=== PATIENT | female | born 1970 | race Caucasian/White ===

== ENCOUNTER 2016-12-28 11:43 | Emergency (ER) | payer OTHER ==
[2016-12-28 14:12] VITALS: BP 128/92
--- NOTE | 2016-12-28 14:17 | UC ---
Throat Pain/Nasal Lacho HPI - HPI Summary HPI Summary: ST radiating to R ear, congested cough, nasal congestion, malaise starting 2 days ago. Lives with father, he has bronchitis. No known fever. - History of Current Complaint Stated Complaint: THROAT,EARS Time Seen by Provider: 12/28/16 13:58 Hx Obtained From: Patient ?: No Onset/Duration: Gradual Onset, Lasting Days Severity: Mild Cough: Productive Associated Signs & Symptoms: Positive: Nasal Discharge. Negative: Fever, Vomiting, Rash - Allergies/Home Medications Allergies/Adverse Reactions: Allergies Allergy/AdvReac Type Severity Reaction Status Date / Time Pseudoephedrine Allergy Severe Hypotension Verified 11/18/16 17:09 [From Sudafed] Aspirin Allergy Intermediate Wheezing Verified 11/18/16 17:09 Clavulanic Acid AdvReac Diarrhea Verified 11/18/16 17:09 [From Augmentin] PMH/Surg Hx/FS Hx/Imm Hx Respiratory History Of: Reports: Asthma - Surgical History Surgical History: Yes Surgery Procedure, Year, and Place: Hysterectomy, 2012, [facility] - Family History Known Family History: Positive: Cardiac Disease, Hypertension, Respiratory Disease - TOBACCO ABUSE Negative: Diabetes - Social History Lives: With Family Alcohol Use: None Substance Use Type: None Smoking Status (MU): Current Every Day Smoker Type: Cigarettes Amount Used/How Often: 1/2 PPD Length of Time of Smoking/Using Tobacco: 31 Years Have You Smoked in the Last Year: Yes Household Exposure Type: Cigarettes - Immunization History Most Recent Influenza Vaccination: Not the 2014/2015 Season Review of Systems Constitutional: Negative Skin: Negative Eyes: Negative ENT: Sore Throat, Ear Ache Respiratory: Cough Cardiovascular: Negative Gastrointestinal: Negative Genitourinary: Negative Motor: Negative Neurovascular: Negative Musculoskeletal: Negative Neurological: Negative Psychological: Negative All Other Systems Reviewed And Are Negative: Yes Physical Exam Triage Information Reviewed: Yes Appearance: Well-Appearing, No Pain Distress, Obese Vital Signs: Initial Vital Signs Temp 98.0 F 12/28/16 14:09 Pulse 85 12/28/16 14:09 Resp 14 12/28/16 14:09 BP 128/92 12/28/16 14:09 Pulse Ox 97 12/28/16 14:09 Vital Signs Reviewed: Yes Eye Exam: Normal Eyes: Positive: Conjunctiva Clear ENT: Positive: Hearing grossly normal, Pharynx normal, TMs normal Dental Exam: Other - dentures Neck exam: Normal Neck: Positive: Supple, Nontender, No Lymphadenopathy Respiratory Exam: Normal Respiratory: Positive: Chest non-tender, Lungs clear, Normal breath sounds, No respiratory distress, No accessory muscle use Cardiovascular Exam: Normal Cardiovascular: Positive: RRR, No Murmur Musculoskeletal Exam: Normal Neurological Exam: Normal Psychological Exam: Normal Skin Exam: Normal Throat Pain/Nasal Course/Dx - Differential Dx/Diagnosis Provider Diagnoses: acute bronchitis, likely viral Discharge - Discharge Plan Condition: Stable Disposition: HOME Patient Education Materials: Acute Bronchitis (ED) Referrals: ANABEL Pratt [Primary Care Provider] - If Needed Additional Instructions: USE YOUR ALBUTEROL INHALER EVERY 4-6 HOURS NEEDED FOR TIGHTNESS IN THE CHEST. We used to think antibiotics were necessary to treat bronchitis, but studies have shown that respiratory viruses cause the disease in the vast majority of cases. Like head colds, most cases of bronchitis get better without antibiotics. We may prescribe antibiotics if we believe bacteria are damaging your airways, or if there's high risk the bronchitis will worsen into pneumonia (such as for individuals with emphysema or other lung disease). Increase your fluid intake. A cool mist humidifier may make your lungs more comfortable. An expectorant (cough medicine that loosens phlegm) can help. If you smoke, STOP!!! Recovery from bronchitis can be somewhat slow, but you should not have any significant worsening or new fevers. As long as you can breathe easily and you continue to have steady improvement, it is not important how many days it takes you to get better. Call or return if you develop increasing fever, shortness of breath, chest pain , bloody sputum, or otherwise worsen. If you have not improved at all after several days, contact your primary care physician or return here.
== END 2016-12-28 14:28 | disposition home or self-care (01) ==
LOC: UCCORT 11:43
DX: J20.9 Acute bronchitis, unspecified (principal); E66.9 Obesity, unspecified; F17.210 Nicotine dependence, cigarettes, uncomplicated; Z88.1 Allergy status to other antibiotic agents; Z88.6 Allergy status to analgesic agent; Z88.8 Allergy status to other drugs, medicaments and biological substances
CPT/HCPCS: 99211; G0463

== ENCOUNTER 2017-01-10 13:12 | Emergency (ER) | payer OTHER ==
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
[2017-01-10 16:21] VITALS: BP 113/82
--- NOTE | 2017-01-10 16:49 | RAD ---
HISTORY: Left upper arm pain, fall COMPARISONS: None VIEWS: 6, Frontal internal rotation and external rotation views of the left humerus with frontal internal rotation, external rotation, and outlet views of the left shoulder FINDINGS: BONE DENSITY: Normal. BONES: There is no displaced fracture. JOINTS: There is mild osteoarthritis of the AC joint. ALIGNMENT: There is no dislocation. SOFT TISSUES: Unremarkable. OTHER FINDINGS: None. IMPRESSION: NO ACUTE OSSEOUS INJURY. IF SYMPTOMS PERSIST, RECOMMEND REPEAT IMAGING.
== END 2017-01-10 17:34 | disposition home or self-care (01) ==
LOC: UCCORT 13:12
DX: S46.912A Strain of unspecified muscle, fascia and tendon at shoulder and upper arm level, left arm, initial encounter (principal); F17.210 Nicotine dependence, cigarettes, uncomplicated; W00.0XXA Fall on same level due to ice and snow, initial encounter; Y92.9 Unspecified place or not applicable; Z88.1 Allergy status to other antibiotic agents; Z88.6 Allergy status to analgesic agent; Z88.8 Allergy status to other drugs, medicaments and biological substances
CPT/HCPCS: 99213; G0463

== ENCOUNTER 2017-04-23 11:22 | Emergency (ER) | payer OTHER ==
[2017-04-23 11:50] VITALS: BP 112/69
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
== END 2017-04-23 12:07 | disposition home or self-care (01) ==
LOC: UCCORT 11:22
DX: T22.211A Burn of second degree of right forearm, initial encounter (principal); X08.8XXA Exposure to other specified smoke, fire and flames, initial encounter; Y93.9 Activity, unspecified; Y92.9 Unspecified place or not applicable; Y99.8 Other external cause status; J45.909 Unspecified asthma, uncomplicated; Z90.710 Acquired absence of both cervix and uterus; Z88.1 Allergy status to other antibiotic agents; Z88.6 Allergy status to analgesic agent; Z88.8 Allergy status to other drugs, medicaments and biological substances; F17.210 Nicotine dependence, cigarettes, uncomplicated
CPT/HCPCS: 99211; G0463

== ENCOUNTER 2017-08-26 19:58 | Emergency (ER) | payer OTHER ==
[2017-08-26 20:43] VITALS: BP 131/77
[2017-08-26] MEDS ORDERED: Azithromycin TAB* 250 MG PO ONE (20:58)
--- NOTE | 2017-08-26 21:02 | UC ---
Throat Pain/Nasal Lacho HPI - HPI Summary HPI Summary: patient is a smoker, has had increase wheezing and cough, sinus pressure and ear pain for about 1 week - History of Current Complaint Chief Complaint: UCRespiratory Stated Complaint: SINUS/SORE THROAT Time Seen by Provider: 08/26/17 20:36 Hx Obtained From: Patient Hx Last Menstrual Period: n/a ?: No Onset/Duration: Sudden Onset, Lasting Weeks Severity: Moderate Associated Signs & Symptoms: Positive: Wheezing, Hoarseness, Sinus Discomfort, Nasal Discharge - Allergies/Home Medications Allergies/Adverse Reactions: Allergies Allergy/AdvReac Type Severity Reaction Status Date / Time Pseudoephedrine Allergy Severe Hypotension Verified 08/26/17 20:43 [From Sudafed] Aspirin Allergy Intermediate Wheezing Verified 08/26/17 20:43 Clavulanic Acid AdvReac Diarrhea Verified 08/26/17 20:43 [From Augmentin] PMH/Surg Hx/FS Hx/Imm Hx Previously Healthy: Yes - Surgical History Surgical History: Yes Surgery Procedure, Year, and Place: Hysterectomy, 2013, [facility] - Family History Known Family History: Positive: Cardiac Disease, Hypertension, Respiratory Disease - TOBACCO ABUSE Negative: Diabetes - Social History Alcohol Use: None Substance Use Type: None Smoking Status (MU): Heavy Every Day Tobacco Smoker Type: Cigarettes Amount Used/How Often: 1/2 PPD Length of Time of Smoking/Using Tobacco: 31 Years Have You Smoked in the Last Year: Yes Household Exposure Type: Cigarettes - Immunization History Most Recent Influenza Vaccination: no Review of Systems Constitutional: Fatigue Skin: Negative Eyes: Negative ENT: Sore Throat, Ear Ache, Nasal Discharge, Sinus Congestion, Sinus Pain/ Tenderness Respiratory: Shortness Of Breath, Cough Cardiovascular: Negative Gastrointestinal: Negative Genitourinary: Negative Motor: Negative Neurovascular: Negative Musculoskeletal: Negative Neurological: Headache Psychological: Negative Is Patient Immunocompromised?: No All Other Systems Reviewed And Are Negative: Yes Physical Exam Triage Information Reviewed: Yes Appearance: Well-Nourished, Pain Distress Vital Signs: Initial Vital Signs Temp 98.5 F 08/26/17 20:39 Pulse 72 08/26/17 20:39 Resp 18 08/26/17 20:39 BP 131/77 08/26/17 20:39 Pulse Ox 99 08/26/17 20:39 Vital Signs Reviewed: Yes Eye Exam: Normal ENT: Positive: Hearing grossly normal, Pharyngeal erythema, TM red Dental Exam: Normal Neck exam: Normal Neck: Positive: Supple, Nontender, No Lymphadenopathy Respiratory: Positive: Chest non-tender, Normal breath sounds, Wheezing, Expiration, Inspiration Cardiovascular Exam: Normal Cardiovascular: Positive: RRR, No Murmur, Pulses Normal Bowel Sounds: Positive: Present Musculoskeletal Exam: Normal Neurological Exam: Normal Psychological Exam: Normal Skin Exam: Normal Throat Pain/Nasal Course/Dx - Course Course Of Treatment: hx obtained, exam performed ,meds reviewed, treated for bronchitis - Differential Dx/Diagnosis Differential Diagnosis/HQI/PQRI: Otitis Media, Pharyngitis, Sinusitis Provider Diagnoses: sinusitis Discharge - Discharge Plan Condition: Stable Disposition: HOME Patient Education Materials: Acute Bronchitis (ED) Additional Instructions: 1. take the medication as prescribed. 2. Increase flud intake and get plenty of rest.
== END 2017-08-26 21:13 | disposition home or self-care (01) ==
LOC: UCCORT 19:58
DX: J32.9 Chronic sinusitis, unspecified (principal); Z88.6 Allergy status to analgesic agent; Z88.1 Allergy status to other antibiotic agents; Z88.8 Allergy status to other drugs, medicaments and biological substances; F17.210 Nicotine dependence, cigarettes, uncomplicated
CPT/HCPCS: 99212; A9270-GY; G0463

== ENCOUNTER 2017-12-09 10:02 | Emergency (ER) | payer OTHER ==
--- NOTE | 2017-12-09 10:57 | UC ---
Throat Pain/Nasal Lacho HPI - HPI Summary HPI Summary: 47 year old female presents with left ear pain and sinus congestion. - History of Current Complaint Chief Complaint: UCRespiratory Stated Complaint: SINUS COMPLAINT Time Seen by Provider: 12/09/17 10:57 Hx Obtained From: Patient Hx Last Menstrual Period: n/a Onset/Duration: Sudden Onset Severity: Moderate Pain Scale Used: 0-10 Numeric - 5 Cough: Nonproductive Associated Signs & Symptoms: Positive: Sinus Discomfort, Nasal Discharge - Allergies/Home Medications Allergies/Adverse Reactions: Allergies Allergy/AdvReac Type Severity Reaction Status Date / Time Pseudoephedrine Allergy Severe Hypotension Verified 12/09/17 10:58 [From Sudafed] Aspirin Allergy Intermediate Wheezing Verified 12/09/17 10:58 Clavulanic Acid AdvReac Diarrhea Verified 12/09/17 10:58 [From Augmentin] PMH/Surg Hx/FS Hx/Imm Hx Previously Healthy: Yes - Surgical History Surgical History: Yes Surgery Procedure, Year, and Place: Hysterectomy, 2013, [facility] - Family History Known Family History: Positive: Cardiac Disease, Hypertension, Respiratory Disease - TOBACCO ABUSE Negative: Diabetes - Social History Alcohol Use: None Substance Use Type: None Smoking Status (MU): Heavy Every Day Tobacco Smoker Type: Cigarettes Amount Used/How Often: 1/2 PPD Length of Time of Smoking/Using Tobacco: 31 Years Have You Smoked in the Last Year: Yes Household Exposure Type: Cigarettes - Immunization History Most Recent Influenza Vaccination: no Review of Systems Constitutional: Negative Skin: Negative Eyes: Negative ENT: Sore Throat, Ear Ache, Nasal Discharge, Sinus Congestion, Sinus Pain/ Tenderness Respiratory: Negative Cardiovascular: Negative Gastrointestinal: Negative Genitourinary: Negative Motor: Negative Neurovascular: Negative Musculoskeletal: Negative Neurological: Negative Psychological: Negative All Other Systems Reviewed And Are Negative: Yes Physical Exam Triage Information Reviewed: Yes Vital Signs Reviewed: Yes Eye Exam: Normal ENT: Positive: Nasal congestion, Nasal drainage, Other - left external ear erythema Dental Exam: Normal Neck exam: Normal Neck: Positive: 1 Respiratory Exam: Normal Cardiovascular Exam: Normal Abdominal Exam: Normal Musculoskeletal Exam: Normal Neurological Exam: Normal Psychological Exam: Normal Skin Exam: Normal Throat Pain/Nasal Course/Dx - Differential Dx/Diagnosis Provider Diagnoses: left ear otitis externa. sinusitis Discharge - Discharge Plan Condition: Stable Disposition: HOME Prescriptions: Azithromyxin CELESTINE (NF) [Z-Celestine (Zithromax) 250 mg tabs #6] 2 tab PO .TODAY, THEN 1 DAILY #6 tab Neomyc/Polym/HC 1% OTIC SUSP* [Cortisporin Otic Susp 1%*] 4 drop LEFT EAR QID # 1 btl Patient Education Materials: Sinusitis (ED), Otitis Externa (ED) Referrals: ANABEL Pratt [Primary Care Provider] -
[2017-12-09 10:58] VITALS: BP 129/77
== END 2017-12-09 11:18 | disposition home or self-care (01) ==
LOC: UCCORT 10:02
DX: H60.92 Unspecified otitis externa, left ear (principal); J32.9 Chronic sinusitis, unspecified; Z90.710 Acquired absence of both cervix and uterus; Z88.6 Allergy status to analgesic agent; Z88.1 Allergy status to other antibiotic agents; Z88.8 Allergy status to other drugs, medicaments and biological substances; F17.210 Nicotine dependence, cigarettes, uncomplicated
CPT/HCPCS: 99212; G0463

== ENCOUNTER 2017-12-31 10:14 | Emergency (ER) | payer OTHER ==
[2017-12-31 11:58] VITALS: BP 119/72
--- NOTE | 2017-12-31 12:11 | UC ---
Throat Pain/Nasal Lacho HPI - HPI Summary HPI Summary: sinus pain and pressure x 2 weeks worse over the past 3 days, + fever, chills, + cough , pnd, - History of Current Complaint Chief Complaint: UCGeneralIllness Stated Complaint: SINUS EARS SORE THROAT Time Seen by Provider: 12/31/17 11:55 Hx Obtained From: Patient Hx Last Menstrual Period: n/a Onset/Duration: Gradual Onset, Lasting Weeks - 2, Still Present Severity: Moderate Pain Intensity: 4 Cough: Nonproductive Associated Signs & Symptoms: Positive: Sinus Discomfort, Nasal Discharge, Fever. Negative: Rash - Allergies/Home Medications Allergies/Adverse Reactions: Allergies Allergy/AdvReac Type Severity Reaction Status Date / Time MS Pseudoephedrine Allergy Severe Hypotension Verified 12/31/17 11:52 [From Sudafed] MS Aspirin [Aspirin] Allergy Intermediate Wheezing Verified 12/31/17 11:52 MS Clavulanic Acid AdvReac Diarrhea Verified 12/31/17 11:52 [From Augmentin] hazelnut Allergy Hives Uncoded 12/31/17 11:53 PMH/Surg Hx/FS Hx/Imm Hx Neurological History: Migraine - Surgical History Surgical History: Yes Surgery Procedure, Year, and Place: Hysterectomy, 2013, [facility] - Family History Known Family History: Positive: Cardiac Disease, Hypertension, Respiratory Disease - TOBACCO ABUSE Negative: Diabetes - Social History Alcohol Use: None Substance Use Type: None Smoking Status (MU): Heavy Every Day Tobacco Smoker Type: Cigarettes Amount Used/How Often: 1/2 PPD Length of Time of Smoking/Using Tobacco: Since Age 14 Have You Smoked in the Last Year: Yes Household Exposure Type: Cigarettes - Immunization History Most Recent Influenza Vaccination: no Review of Systems Constitutional: Fever, Chills, Fatigue Skin: Negative Eyes: Negative ENT: Sore Throat, Ear Ache, Nasal Discharge Respiratory: Cough Cardiovascular: Negative Is Patient Immunocompromised?: No All Other Systems Reviewed And Are Negative: Yes Physical Exam Triage Information Reviewed: Yes Appearance: Well-Appearing, No Pain Distress, Well-Nourished Vital Signs: Initial Vital Signs Temp 98 F 12/31/17 11:51 Pulse 80 12/31/17 11:51 Resp 16 12/31/17 11:51 BP 119/72 12/31/17 11:51 Pulse Ox 100 12/31/17 11:51 Vital Signs Reviewed: Yes Eye Exam: Normal Eyes: Positive: Conjunctiva Clear ENT: Positive: Normal ENT inspection, Hearing grossly normal, Pharynx normal, Nasal congestion, Nasal drainage, TMs normal, Sinus tenderness Neck exam: Normal Neck: Positive: Supple, Nontender, No Lymphadenopathy Respiratory: Positive: Chest non-tender, Lungs clear, Normal breath sounds Cardiovascular: Positive: RRR, No Murmur, Pulses Normal Skin Exam: Normal Throat Pain/Nasal Course/Dx - Differential Dx/Diagnosis Provider Diagnoses: sinusitis Discharge - Discharge Plan Condition: Stable Disposition: HOME Prescriptions: DOXYcycline CAP(*) [DOXYcycline 100MG CAP(*)] 100 mg PO BID #20 cap Patient Education Materials: Sinusitis (ED) Referrals: ANABEL Pratt [Primary Care Provider] - 7 Days Additional Instructions: increase fluid, Mucinex , use Flonase otc nasal spray daily
== END 2017-12-31 12:14 | disposition home or self-care (01) ==
LOC: UCCORT 10:14
DX: J32.9 Chronic sinusitis, unspecified (principal); F17.210 Nicotine dependence, cigarettes, uncomplicated
CPT/HCPCS: 99212; G0463

== ENCOUNTER 2018-02-13 10:18 | Emergency (ER) | payer OTHER ==
[2018-02-13 11:04] VITALS: BP 116/70
--- NOTE | 2018-02-13 11:15 | UC ---
Throat Pain/Nasal Lacho HPI - HPI Summary HPI Summary: SINUS PAIN AND PRESSURE X 5 DAYS + PND, COUGH, NASAL CONGESTION, SORE THROAT NO FEVER , NO CHILLS, - History of Current Complaint Chief Complaint: UCGeneralIllness Stated Complaint: SINUS,BILATERAL EAR PAIN Time Seen by Provider: 02/13/18 11:07 Hx Obtained From: Patient Hx Last Menstrual Period: n/a Onset/Duration: Gradual Onset, Lasting Days - 5, Still Present Severity: Moderate Pain Intensity: 5 Cough: Nonproductive Associated Signs & Symptoms: Positive: Sinus Discomfort, Nasal Discharge. Negative: Dysphagia, FB Sensation, Drooling, Wheezing, Hoarseness, Fever, Vomiting, Rash - Allergies/Home Medications Allergies/Adverse Reactions: Allergies Allergy/AdvReac Type Severity Reaction Status Date / Time amoxicillin [From Augmentin] Allergy Diarrhea Verified 02/13/18 11:15 aspirin Allergy Wheezing Verified 02/13/18 11:15 clavulanic acid Allergy Diarrhea Verified 02/13/18 11:15 [From Augmentin] hazelnut Allergy Hives Verified 02/13/18 11:15 pseudoephedrine Allergy See Comment Verified 02/13/18 11:15 [From Sudafed] Home Medications: Home Medications Gabapentin CAP(*) [Neurontin 300 CAP(*)] 300 mg PO BEDTIME 02/13/18 [History Confirmed 02/13/18] PMH/Surg Hx/FS Hx/Imm Hx - Additional Past Medical History Additional PMH: Fibromyalgia, Migraines Respiratory History: Asthma - Surgical History Surgical History: Yes Surgery Procedure, Year, and Place: Hysterectomy, 2013, [facility] - Family History Known Family History: Positive: Cardiac Disease, Hypertension, Respiratory Disease - TOBACCO ABUSE Negative: Diabetes - Social History Alcohol Use: None Substance Use Type: None Smoking Status (MU): Heavy Every Day Tobacco Smoker Type: Cigarettes Amount Used/How Often: 1/2 PPD Length of Time of Smoking/Using Tobacco: Since Age 14 Have You Smoked in the Last Year: Yes Household Exposure Type: Cigarettes - Immunization History Most Recent Influenza Vaccination: no Review of Systems Constitutional: Negative Skin: Negative Eyes: Negative ENT: Sore Throat, Nasal Discharge, Sinus Congestion, Sinus Pain/Tenderness Respiratory: Cough Cardiovascular: Negative Gastrointestinal: Negative Genitourinary: Negative Is Patient Immunocompromised?: No All Other Systems Reviewed And Are Negative: Yes Physical Exam Triage Information Reviewed: Yes Appearance: Well-Appearing, No Pain Distress, Well-Nourished Vital Signs: Initial Vital Signs Temp 97.6 F 02/13/18 10:58 Pulse 79 02/13/18 10:58 Resp 14 02/13/18 10:58 BP 116/70 02/13/18 10:58 Pulse Ox 100 02/13/18 10:58 Vital Signs Reviewed: Yes Eye Exam: Normal Eyes: Positive: Conjunctiva Clear ENT: Positive: Normal ENT inspection, Hearing grossly normal, Pharynx normal, Nasal congestion, Nasal drainage, TMs normal, Sinus tenderness Neck exam: Normal Neck: Positive: Supple, Nontender, No Lymphadenopathy Respiratory: Positive: Chest non-tender, Lungs clear, Normal breath sounds, No respiratory distress Cardiovascular: Positive: RRR, No Murmur, Pulses Normal Skin Exam: Normal Throat Pain/Nasal Course/Dx - Differential Dx/Diagnosis Provider Diagnoses: SINUSITIS Discharge - Discharge Plan Condition: Stable Disposition: HOME Prescriptions: DOXYcycline CAP(*) [DOXYcycline 100MG CAP(*)] 100 mg PO BID #20 cap Patient Education Materials: Sinusitis (ED) Referrals: ANABEL Pratt [Primary Care Provider] - If Needed
== END 2018-02-13 11:23 | disposition home or self-care (01) ==
LOC: UCCORT 10:18
DX: J32.9 Chronic sinusitis, unspecified (principal); Z88.0 Allergy status to penicillin; Z88.8 Allergy status to other drugs, medicaments and biological substances; Z91.018 Allergy to other foods; F17.210 Nicotine dependence, cigarettes, uncomplicated
CPT/HCPCS: 99212; G0463

== ENCOUNTER 2018-03-29 10:06 | Emergency (ER) | payer OTHER ==
[2018-03-29 11:18] VITALS: BP 107/68
--- NOTE | 2018-03-29 11:51 | ED ---
Throat Pain/Nasal Congestion - HPI Summary HPI Summary: 48 yr old female with frontal and maxillary sinus pressure, post nasal drip and cough. Onset about a week ago. Not associated with fever or chills. Not associated with SOB. She has had sinus infections before. She feels like she has increased pressure in her ears. She has no other complaints. She states she cannot take Augmentin due to allergy. She states she has taken zithromax before with no issue for this condition. - History of Current Complaint Chief Complaint: UCRespiratory Time Seen by Provider: 03/29/18 11:34 - Allergies/Home Medications Allergies/Adverse Reactions: Allergies Allergy/AdvReac Type Severity Reaction Status Date / Time aspirin Allergy Wheezing Verified 03/29/18 11:14 clavulanic acid Allergy Diarrhea Verified 03/29/18 11:14 [From Augmentin] cortisone Allergy Rash Verified 03/29/18 11:14 hazelnut Allergy Hives Verified 03/29/18 11:14 pseudoephedrine Allergy See Comment Verified 03/29/18 11:14 [From Sudafed] PMH/Surg Hx/FS Hx/Imm Hx Respiratory History: Reports: Hx Asthma - Surgical History Surgery Procedure, Year, and Place: Hysterectomy, 2013, [facility] Infectious Disease History: No Infectious Disease History: Reports: Hx of Known/Suspected MRSA - [facility] [place], [place], 2016 Denies: Hx Clostridium Difficile, Hx Hepatitis, Hx Human Immunodeficiency Virus (HIV), Hx Shingles, Hx Tuberculosis, Hx Known/Suspected VRE, Hx Known/ Suspected VRSA, History Other Infectious Disease, Traveled Outside the [place] in Last 30 Days - Family History Known Family History: Positive: Cardiac Disease, Hypertension, Respiratory Disease - TOBACCO ABUSE Negative: Diabetes - Social History Occupation: Employed Full-time Alcohol Use: None Substance Use Type: Reports: None Smoking Status (MU): Heavy Every Day Tobacco Smoker Type: Cigarettes Amount Used/How Often: 1 PPD Length of Time of Smoking/Using Tobacco: Since Age 14 Have You Smoked in the Last Year: Yes Review of Systems Constitutional: Negative Positive: Other - sinus pressure, post nasal drip. All Other Systems Reviewed And Are Negative: Yes Physical Exam Triage Information Reviewed: Yes Vital Signs On Initial Exam: Initial Vitals Temp Pulse Resp BP Pulse Ox 98 F 76 16 107/68 100 03/29/18 11:12 03/29/18 11:12 03/29/18 11:12 03/29/18 11:12 03/29/18 11:12 Vital Signs Reviewed: Yes Appearance: Positive: Well-Appearing, No Pain Distress Skin: Positive: Warm Head/Face: Positive: Normal Head/Face Inspection Eyes: Positive: EOMI ENT: Positive: Pharynx normal, Nasal congestion, TMs normal, Sinus tenderness - bilateral Neck: Positive: Nontender Respiratory/Lung Sounds: Positive: Clear to Auscultation, Breath Sounds Present Cardiovascular: Positive: RRR. Negative: Murmur Musculoskeletal: Positive: Strength/ROM Intact Neurological: Positive: Sensory/Motor Intact, Alert, Oriented to Person Place, Time, CN Intact II-III Psychiatric: Positive: Normal Diagnostics - Vital Signs Vital Signs Temp Pulse Resp BP Pulse Ox 03/29/18 11:12 98 F 76 16 107/68 100 - Laboratory Lab Statement: Any lab studies that have been ordered have been reviewed, and results considered in the medical decision making process. EENT Course/Dx - Course Course Of Treatment: 48 yr female with sinusitis. Rx with Zithromax. - Diagnoses Provider Diagnoses: Sinusitis Discharge - Sign-Out/Discharge Documenting (check all that apply): Discharge/Admit/Transfer - Discharge Plan Condition: Good Disposition: HOME Prescriptions: Azithromycin TAB* [Zithromax TAB (Z-CELESTINE) 250 mg #6 tabs] 2 tab PO .TODAY, THEN 1 DAILY #1 celestine Patient Education Materials: Sinusitis (ED) Referrals: ANABEL Pratt [Primary Care Provider] - 2 Days - Billing Disposition and Condition Condition: GOOD Disposition: HOME
== END 2018-03-29 11:54 | disposition home or self-care (01) ==
LOC: UCCORT 10:06
DX: J32.9 Chronic sinusitis, unspecified (principal); F17.210 Nicotine dependence, cigarettes, uncomplicated; Z88.6 Allergy status to analgesic agent; Z88.3 Allergy status to other anti-infective agents; Z88.8 Allergy status to other drugs, medicaments and biological substances
CPT/HCPCS: 99212; G0463

== ENCOUNTER 2018-08-21 08:03 | Emergency (ER) | payer OTHER ==
[2018-08-21 08:18] VITALS: BP 120/76
--- NOTE | 2018-08-21 09:53 | UC ---
Throat Pain/Nasal Lacho HPI - HPI Summary HPI Summary: 48-year-old female with sinus pressure and ear pain.Sinus congestion for three days. Right ear pain radiating into neck after sinus saline irrigations for one day. "Hot to cold" subjective fever for one day. She states at least 1 time per year she gets a sinus infection including last fall when she required numerous rounds of antibiotics and needed to follow-up with Dr. Thompson who advised additional antibiotics and nasal saline rinses. Patient usually smokes one pack per day but down to half pack per day at this time. She states she has felt hot but no documented fever. She has had productive green phlegm. [ End ] - History of Current Complaint Chief Complaint: UCEar Stated Complaint: SINUS RIGHT EAR COMPLAINT Time Seen by Provider: 08/21/18 09:37 Hx Obtained From: Patient Hx Last Menstrual Period: n/a Pain Intensity: 5 - Allergies/Home Medications Allergies/Adverse Reactions: Allergies Allergy/AdvReac Type Severity Reaction Status Date / Time aspirin Allergy Wheezing Verified 08/21/18 08:15 clavulanic acid Allergy Diarrhea Verified 08/21/18 08:15 [From Augmentin] cortisone Allergy Rash Verified 08/21/18 08:15 hazelnut Allergy Hives Verified 08/21/18 08:15 pseudoephedrine Allergy See Comment Verified 08/21/18 08:15 [From Sudafed] PMH/Surg Hx/FS Hx/Imm Hx Previously Healthy: Yes - Surgical History Surgical History: Yes Surgery Procedure, Year, and Place: Hysterectomy, 2013, [facility] - Family History Known Family History: Positive: Cardiac Disease, Hypertension, Respiratory Disease - TOBACCO ABUSE Negative: Diabetes - Social History Occupation: Employed Full-time Lives: With Family Alcohol Use: None Substance Use Type: None Smoking Status (MU): Heavy Every Day Tobacco Smoker Type: Cigarettes Amount Used/How Often: 1 PPD Length of Time of Smoking/Using Tobacco: Since Age 14 Have You Smoked in the Last Year: Yes Household Exposure Type: Cigarettes - Immunization History Most Recent Influenza Vaccination: no Review of Systems Constitutional: Fever, Fatigue ENT: Sore Throat, Ear Ache, Nasal Discharge, Sinus Congestion, Sinus Pain/ Tenderness Respiratory: Cough Is Patient Immunocompromised?: No All Other Systems Reviewed And Are Negative: Yes Physical Exam Triage Information Reviewed: Yes Appearance: Well-Appearing, No Pain Distress, Well-Nourished Vital Signs: Initial Vital Signs Temp 98.1 F 08/21/18 08:13 Pulse 77 08/21/18 08:13 Resp 14 08/21/18 08:13 BP 120/76 08/21/18 08:13 Pulse Ox 99 08/21/18 08:13 Vital Signs Reviewed: Yes Eye Exam: Normal ENT Exam: Normal ENT: Positive: Pharyngeal erythema, Nasal congestion, Nasal drainage, TM bulging , Sinus tenderness Dental Exam: Normal Neck exam: Normal Neck: Positive: 1 Respiratory Exam: Normal Cardiovascular Exam: Normal Musculoskeletal Exam: Normal Neurological Exam: Normal Psychological Exam: Normal Skin Exam: Normal Throat Pain/Nasal Course/Dx - Course Course Of Treatment: advised to quit smoking. with history of recurrent sinus infections start treatment at this time and aware of SE - Differential Dx/Diagnosis Differential Diagnosis/HQI/PQRI: Otitis Media, Sinusitis, URI Provider Diagnoses: Sinusitis Discharge - Sign-Out/Discharge Documenting (check all that apply): Patient Departure All imaging exams completed and their final reports reviewed: No Studies - Discharge Plan Condition: Good Disposition: HOME Prescriptions: Clindamycin HCl 300 mg PO BID 10 Days #20 capsule Patient Education Materials: How to Stop Smoking (ED), Sinusitis (ED) Referrals: Helena Huddleston PA [Primary Care Provider] - 4 Days - Billing Disposition and Condition Condition: GOOD Disposition: Home
== END 2018-08-21 10:13 | disposition home or self-care (01) ==
LOC: UCCORT 08:03
DX: J32.9 Chronic sinusitis, unspecified (principal); F17.210 Nicotine dependence, cigarettes, uncomplicated; Z88.8 Allergy status to other drugs, medicaments and biological substances; Z91.018 Allergy to other foods
CPT/HCPCS: 99212; G0463

== ENCOUNTER 2019-01-09 11:02 | Emergency (ER) | payer OTHER ==
[2019-01-09 11:48] VITALS: BP 109/76
--- NOTE | 2019-01-09 12:35 | UC ---
Throat Pain/Nasal Lacho HPI - HPI Summary HPI Summary: Pt c/o fever, chills, body aches, ST, ear ache and sinus congestion and pain X 3 days. Pt has history of OM and sinusitis. Pt is scheduled to have gall bladder surgery next week. - History of Current Complaint Chief Complaint: UCRespiratory Stated Complaint: SINUS CONGESTION,PRODUCTIVE COUGH Time Seen by Provider: 01/09/19 12:03 Hx Obtained From: Patient Hx Last Menstrual Period: n/a ?: No Onset/Duration: Sudden Onset, Lasting Days, Still Present Severity: Moderate Pain Intensity: 5 Associated Signs & Symptoms: Positive: Dysphagia, Sinus Discomfort, Fever - Epiglottits Risk Factors Epiglottis Risk Factors: Sudden Onset - Allergies/Home Medications Allergies/Adverse Reactions: Allergies Allergy/AdvReac Type Severity Reaction Status Date / Time aspirin Allergy Wheezing Verified 01/09/19 11:43 clavulanic acid Allergy Diarrhea Verified 01/09/19 11:43 [From Augmentin] cortisone Allergy Rash Verified 01/09/19 11:43 hazelnut Allergy Hives Verified 01/09/19 11:43 pseudoephedrine Allergy See Comment Verified 01/09/19 11:43 [From Sudafed] PMH/Surg Hx/FS Hx/Imm Hx Previously Healthy: Yes GI/ History: Gall Bladder Disease - Surgical History Surgical History: Yes Surgery Procedure, Year, and Place: Hysterectomy, 2012, [facility] - Family History Known Family History: Positive: Cardiac Disease, Hypertension, Respiratory Disease - TOBACCO ABUSE Negative: Diabetes - Social History Occupation: Works From/At Home Lives: With Family Alcohol Use: None Substance Use Type: None Smoking Status (MU): Light Every Day Tobacco Smoker Type: Cigarettes Amount Used/How Often: <1/2 PPD Length of Time of Smoking/Using Tobacco: Since Age 14 Have You Smoked in the Last Year: Yes Household Exposure Type: Cigarettes - Immunization History Most Recent Influenza Vaccination: no Review of Systems All Other Systems Reviewed And Are Negative: Yes Constitutional: Positive: Fever, Chills, Fatigue Skin: Positive: Negative Eyes: Positive: Negative ENT: Positive: Sore Throat, Ear Ache, Sinus Congestion, Sinus Pain/Tenderness Respiratory: Positive: Cough Cardiovascular: Positive: Negative Gastrointestinal: Positive: Negative Genitourinary: Positive: Negative Motor: Positive: Negative Neurovascular: Positive: Negative Musculoskeletal: Positive: Myalgia Neurological: Positive: Headache Psychological: Positive: Negative Is Patient Immunocompromised?: No Physical Exam Triage Information Reviewed: Yes Appearance: Ill-Appearing Vital Signs: Initial Vital Signs Temp 97.5 F 01/09/19 11:43 Pulse 77 01/09/19 11:43 Resp 16 01/09/19 11:43 BP 109/76 01/09/19 11:43 Pulse Ox 100 01/09/19 11:43 Vital Signs Reviewed: Yes Eye Exam: Normal ENT: Positive: Nasal congestion, TM bulging, Sinus tenderness Dental Exam: Normal Neck exam: Normal Respiratory Exam: Normal Cardiovascular Exam: Normal Musculoskeletal Exam: Normal Neurological Exam: Normal Psychological Exam: Normal Skin Exam: Normal Throat Pain/Nasal Course/Dx - Differential Dx/Diagnosis Differential Diagnosis/HQI/PQRI: Sinusitis, URI Provider Diagnosis: Sinusitis Discharge - Sign-Out/Discharge Documenting (check all that apply): Patient Departure All imaging exams completed and their final reports reviewed: No Studies - Discharge Plan Condition: Stable Disposition: HOME Prescriptions: Amoxicillin PO (*) [Amoxicillin 875 MG (*)] 875 mg PO Q12H #20 tab Patient Education Materials: Sinusitis (ED) Referrals: Helena Huddleston PA [Primary Care Provider] - If Needed Additional Instructions: Over the counter drug for symptom management: Coricidin Drug Description: Coricidin, Coricidin 'D', or Coricidin HBP, is the name of a drug marketed by [employer] that contains dextromethorphan and chlorpheniramine maleate. Varieties of Coricidin may also contain acetaminophen and guaifenesin. - Billing Disposition and Condition Condition: STABLE Disposition: Home
== END 2019-01-09 12:42 | disposition home or self-care (01) ==
LOC: UCCORT 11:02
DX: J32.9 Chronic sinusitis, unspecified (principal); J02.9 Acute pharyngitis, unspecified; F17.210 Nicotine dependence, cigarettes, uncomplicated; Z88.8 Allergy status to other drugs, medicaments and biological substances; Z88.1 Allergy status to other antibiotic agents; Z91.018 Allergy to other foods
CPT/HCPCS: 99212; G0463

== ENCOUNTER 2019-01-19 11:48 | Day surgery (SDC) | payer OTHER ==
[~2019-01-19 11:48] MED LIST: Buffered Lidocaine 1% SYRIN* 1 ML/SYRINGE INTRADERM ONE; Famotidine IV* 10 MG/ML 2 ML (20 mg) IV ONE; Lactated Ringers 1000 ML Bag* 1,000 ML IV SCH
[2019-01-19] MEDS ORDERED: Famotidine IV* 10 MG/ML 2 ML (20 mg) ONE (13:38)
[2019-01-19] MEDS ORDERED: Propofol* 10 MG/ML 20 ML BTL ONE (14:27)
[2019-01-19] MEDS ORDERED: Ketorolac INJ* 30 MG/ML 1 ML VIAL ONE (14:27)
[2019-01-19] MEDS ORDERED: Midazolam* 1 MG/ML 5 ML VIAL (5 MG) ONE (14:27)
[2019-01-19] MEDS ORDERED: Dexamethasone IV* 4 MG/ML 1 ML (4 MG) ONE (14:27)
[2019-01-19] MEDS ORDERED: Lidocaine 2% PF * 5 ML VIAL ONE (14:27)
[2019-01-19] MEDS ORDERED: fentaNYL* 50 MCG/ML 2 ML VIAL (100 MCG VIAL) ONE ×2 (14:27→16:27)
[2019-01-19] MEDS ORDERED: Ondansetron INJ* 2 MG/ML VIAL ONE ×2 (14:27→16:28)
[2019-01-19] MEDS ORDERED: Cisatracurium* 2 MG/ML MDV 5 ML ONE (14:27)
[2019-01-19] MEDS ORDERED: Bupivacaine 0.5%* 50 ML VIAL ONE (15:20)
[2019-01-19] MEDS ORDERED: Neostigmine Methylsulfate* 1 MG/ML 10 ML VIAL (1 mg/ml) ONE (15:56)
[2019-01-19] MEDS ORDERED: Glycopyrrolate IV* 0.2 MG/ML 1 ML VIAL ONE (15:56)
[2019-01-19] MEDS ORDERED: oxyCODONE/Acetamin 5/325 MG* TAB PO PRN (16:27)
[2019-01-19] MEDS ORDERED: Ondansetron INJ* 2 MG/ML VIAL IV PRN (16:27)
[2019-01-19] MEDS ORDERED: Naloxone* 0.4 MG/ML 1 ML VIAL IV PRN (16:27)
[2019-01-19] MEDS: fentaNYL* 50 MCG/ML 2 ML VIAL (100 MCG VIAL) IV PRN ×2 (16:30→17:04)
[2019-01-19] MEDS ORDERED: oxyCODONE/Acetamin 5/325 MG* TAB ONE (16:44)
[2019-01-19 18:01] VITALS: BP 136/89
--- NOTE | 2019-01-19 22:40 | OP ---
DATE OF OPERATION: 01/19/19 - [facility] DATE OF : 70 SURGEON: Sky Del Castillo MD HOST/HOSTESS: Henry Kc MD PRE-OP DIAGNOSIS: Cholecystitis. POST-OP DIAGNOSIS: Cholecystitis. OPERATIVE PROCEDURE: Laparoscopic cholecystectomy. INDICATIONS FOR PROCEDURE: History of cholecystitis and pancreatitis. Risks including but not limited to bleeding, infection, injury to intraabdominal contents including the bowel, the bile duct, liver/other, no relief of symptoms were explained to the patient who seemed to understand and agreed to the procedure and all questions were answered. DESCRIPTION OF PROCEDURE: The patient was taken to the operating room, placed supine. Time-out was performed after the abdomen was prepped and draped in a sterile fashion and the induction of general endotracheal anesthesia. Correct patient, correct procedure was noted. A 5-mm trocar was placed to the right of the falciform ligament in the subxiphoid position under direct visualization of the camera using a bladeless trocar. Pneumoperitoneum was achieved to 15 mmHg. A camera was placed in the abdomen and the abdomen was scanned. There was no obvious injury from trocar placement. A 12-mm umbilical and two right-sided 5- mm trocars were placed. The fundus of the gallbladder was grasped and retracted up and over the liver. The cystic duct was identified, isolated, clipped, and divided. The cystic artery and a small branch of it was identified , clipped, and divided. The gallbladder was removed from the hepatic bed using the Bovie cautery and the scissors. It was placed into an Endobag and removed through the umbilical port site. The right upper quadrant was irrigated and aspirated dry. EBL minimal. Hemostasis was intact. The clips were in place. Pneumoperitoneum was aspirated out of the abdomen and trocars were removed. The skin was closed with Monocryl and glue at the 5 mm sites. The fascia was closed with 0 Vicryl at the umbilical site and the skin was closed with Monocryl and glue. She tolerated the procedure well. She was extubated and taken to the recovery room in stable condition. [id number]/CPS #: [id number] MTDD
== END 2019-01-19 17:52 | disposition home or self-care (01) ==
LOC: OR 11:48
PROVIDERS: ATTEND Surgery
DX: K80.10 Calculus of gallbladder with chronic cholecystitis without obstruction (principal); E03.9 Hypothyroidism, unspecified; F41.8 Other specified anxiety disorders; J45.909 Unspecified asthma, uncomplicated; Z72.0 Tobacco use
CPT/HCPCS: 88304; A9270-GY; J1100; J1885; J2250; J2405; J2704; J2710; J3010

== ENCOUNTER 2019-08-20 04:52 | Emergency (ER) | payer OTHER ==
[2019-08-20] MEDS ORDERED: Albuterol/Ipratropium NEB.SOL* Albuterol 2.5 MG/Ipratropium 0.5 MG 3 ML INH ONE (04:56)
--- NOTE | 2019-08-20 05:00 | ED ---
Complex/Multi-Sys Presentation - HPI Summary HPI Summary: 49 year old F brought in by EMS to [facility] complains of cough and shortness of breath and productive cough since 4 days ago. Patient reports fever, chills, diarrhea, and denies nausea, vomiting. The patient rates the pain 0/10 in severity. Symptoms aggravated by nothing. Symptoms alleviated by 600 to 800 mg ibuprofen every 6 hours and nasal cleansing. EMS gave patient 1 Duoneb and 10 dexamethasone, which also provided relief. EMS states that patient has hx asthma exacerbations, last one being 1 year ago. Patient states she doesn't have an inhaler, and has never been hospitalized for her asthma. EMS states that patient has a doctor's appointment today. Patient states she smokes 1/2 PPD , reports occasional glass of wine, and denies drug use. Medications reviewed. Allergies noted. - History Of Current Complaint Hx Obtained From: Patient Onset/Duration: Lasting Days - 4, Still Present Timing: Constant Aggravating Factor(s): Nothing Alleviating Factor(s): Nothing Associated Signs And Symptoms: Positive: Diarrhea, Fever, Other - chills. Negative: Nausea, Vomiting - Allergies/Home Medications Allergies/Adverse Reactions: Allergies Allergy/AdvReac Type Severity Reaction Status Date / Time amoxicillin [From Augmentin] Allergy Diarrhea Verified 01/19/19 13:42 aspirin Allergy Wheezing Verified 01/19/19 13:42 clavulanic acid Allergy Diarrhea Verified 01/19/19 13:42 [From Augmentin] cortisone Allergy Rash Verified 01/19/19 13:42 hazelnut Allergy Hives Verified 01/19/19 13:42 pseudoephedrine Allergy See Comment Verified 01/19/19 13:42 [From Sudafed] cephalexin [From Keflex] AdvReac Diarrhea Verified 01/19/19 13:42 CHOCOLATE Allergy MIGRAINES Uncoded 01/19/19 13:42 PMH/Surg Hx/FS Hx/Imm Hx Respiratory History: Reports: Hx Asthma - HX OF IN THE PAST- REPORTS ASSOCIATED WITH BRONCHITIS GI History: Reports: Other GI Disorders - PANCREATITIS Musculoskeletal History: Reports: Hx Bursitis - RIGHT HIP Sensory History: Reports: Hx Contacts or Glasses - GLASSES, Hx Glaucoma - [id number]. [place] Q6 MONTHS Denies: Hx Hearing Aid Opthamlomology History: Reports: Hx Contacts or Glasses - GLASSES, Hx Glaucoma - [id number]. [place] Q6 MONTHS Neurological History: Reports: Hx Migraine - TRIGGERS INCLUDE EXCESSIVE AMOUNTS OF CAFFEINE, CHOCOLATE, SINUS INFECTION, Other Neuro Impairments/Disorders - FIBROMYALGIA Psychiatric History: Reports: Hx Anxiety - HX OF-FINISHED COUNSELER 11/2018, Hx Depression - HX OF FINISHED COUNSELER 11/2018 - Surgical History Surgery Procedure, Year, and Place: Hysterectomy, 2013, [facility] Hx Anesthesia Reactions: No Infectious Disease History: Reports: Hx of Known/Suspected MRSA - LEFT ARM Denies: Hx Clostridium Difficile, Hx Hepatitis, Hx Human Immunodeficiency Virus (HIV), Hx Shingles, Hx Tuberculosis, Hx Known/Suspected VRE, Hx Known/ Suspected VRSA, History Other Infectious Disease - Family History Known Family History: Positive: Cardiac Disease, Hypertension, Respiratory Disease - TOBACCO ABUSE Negative: Diabetes - Social History Alcohol Use: None Hx Substance Use: No Substance Use Type: Reports: None Hx Tobacco Use: Yes Smoking Status (MU): Light Every Day Tobacco Smoker Type: Cigarettes Amount Used/How Often: <1/2 PPD X 30 YEARS Length of Time of Smoking/Using Tobacco: Since Age 14 Have You Smoked in the Last Year: Yes Review of Systems Positive: Fever, Chills Positive: Shortness Of Breath, Cough Positive: Diarrhea. Negative: Vomiting, Nausea All Other Systems Reviewed And Are Negative: Yes Physical Exam - Summary Physical Exam Summary: Constitutional: Well-developed, Well-nourished, Alert. (-) Distressed Skin: Warm, Dry HENT: Normocephalic; Atraumatic Eyes: Conjunctiva normal Neck: Musculoskeletal ROM normal neck. (-) JVD, (-) Stridor, (-) Tracheal deviation Cardio: Rhythm regular, rate normal, Heart sounds normal; Intact distal pulses; The pedal pulses are 2+ and symmetric. Radial pulses are 2+ and symmetric. (-) Murmur Pulmonary/Chest wall: Patient is speaking in short sentences, coughing frequently. She has inspiratory wheezing bilaterally and mild decreased air entry bilaterally Abd: Soft, (-) tenderness, (-) Distension, (-) Guarding, (-) Rebound Musculoskeletal: (-) Edema Lymph: (-) Cervical adenopathy Neuro: Alert, Oriented x3 Psych: Mood and affect Normal Triage Information Reviewed: Yes Vital Signs Reviewed: Yes Diagnostics - Laboratory Lab Statement: Any lab studies that have been ordered have been reviewed, and results considered in the medical decision making process. - Radiology CXR Radiology Interpretation Completed By: ED Physician Summary of Radiographic Findings: no acute process. pending official report - EKG 0500 Cardiac Rate: NL - 68 BPM EKG Rhythm: Sinus Rhythm Complex Multi-Symp Course/Dx Course Of Treatment: Patient is here with an asthma exacerbation. Patient's had bowel URI-type symptoms over the past couple of days with acute worsening tonight. Patient received steroids and a DuoNeb with EMS improvement in her symptoms. Patient had wheezing here so she was given another DuoNeb. Patient had negative chest x-ray for pneumonia. Patient is a daily smoker for her whole life and likely has an underlying COPD component. Given patient's symptoms and smoking status, patient started on azithromycin. Patient was discharged with a dose of Decadron for tomorrow and an albuterol inhaler as well. - Diagnoses Provider Diagnoses: Asthma exacerbation, Bronchitis, Wheezing, Cough Discharge ED - Sign-Out/Discharge Documenting (check all that apply): Patient Departure - Discharge Patient Received Moderate/Deep Sedation with Procedure: No - Discharge Plan Condition: Stable Disposition: HOME Prescriptions: Albuterol HFA INHALER* [Ventolin HFA Inhaler*] 4 - 6 puff INH Q4H PRN #1 mdi PRN Reason: Wheezing Azithromycin 500 mg PO BID 5 Days #10 tab Dexamethasone TAB* [Decadron TAB*] 12 mg PO ONCE #3 tab Patient Education Materials: Asthma (ED), Acute Bronchitis (ED), Acute Cough ( ED), Wheezing (ED) Referrals: Helena Huddleston PA [Primary Care Provider] - 1 Day Additional Instructions: Take medications as prescribed. Please follow up with your primary care physician. Please make all follow-ups in 1-3 days unless I advise you otherwise. PLEASE RETURN TO EMERGENCY DEPARTMENT FOR ANY NEW OR WORSENING SYMPTOMS such as worsening breathing, worsening cough, and/or high fever. - Billing Disposition and Condition Condition: STABLE Disposition: Home - Attestation Statements Document Initiated by Scribe: Yes Documenting Scribe: Carli Powers Provider For Whom Scribe is Documenting (Include Credential): Jose Fletcher MD Scribe Attestation: Carli Hernandez, scribed for Jose Fletcher MD on 08/20/19 at 0557. Scribe Documentation Reviewed: Yes Provider Attestation: The documentation as recorded by the scribe, Carli Powers accurately reflects the service I personally performed and the decisions made by me, Jose Fletcher MD Status of Scribe Document: Viewed
[2019-08-20] MEDS ORDERED: Azithromycin TAB* 250 MG PO ONE (05:49)
[2019-08-20 06:24] VITALS: BP 104/66
== END 2019-08-20 06:22 | disposition home or self-care (01) ==
LOC: ED 04:52
DX: J45.901 Unspecified asthma with (acute) exacerbation (principal); J40 Bronchitis, not specified as acute or chronic; F17.210 Nicotine dependence, cigarettes, uncomplicated; Z90.710 Acquired absence of both cervix and uterus; Z88.6 Allergy status to analgesic agent; Z88.1 Allergy status to other antibiotic agents; Z88.8 Allergy status to other drugs, medicaments and biological substances
CPT/HCPCS: 71045; 93005; 99284; A9270-GY

== ENCOUNTER 2023-02-15 16:40 | Observation (INO) ==
[2023-02-15 17:54] LABS: ABS Basophils 0.1 10^3/ul (0-0.2); ABS Eosinophils 0.1 10^3/ul (0-0.6); ABS Lymphocytes 2.1 10^3/ul (1.0-4.8); ABS Monocytes 0.6 10^3/ul (0-0.8); ABS Neutrophils 3.7 10^3/ul (1.5-7.7); Eosinophil % 1.7 %; Hematocrit 41 % (35-47); Hemoglobin 14.4 g/dL (12.0-16.0); Lymphocyte % 32.2 %; Mean Corpuscular HGB Conc 35 g/dL (31-36); Mean Corpuscular Hemoglobin 30 pg (27-31); Mean Corpuscular Volume 85 fL (80-97); Mean Platelet Volume 6.4 fL (7.4-10.4); Nucleated Red Blood Cells % 0.1; Platelet Count 261 10^3/uL (150-450); Red Blood Count 4.84 10^6 /uL (3.70-4.87); Red Cell Distribution Width 14 % (10-15); White Blood Count 6.6 10^3/uL (3.5-10.8)
[2023-02-15 18:05] LABS: INR 1.04 (0.88-1.18)
[2023-02-15 18:29] LABS: Albumin 4.3 g/dL (3.2-5.2); Albumin/Globulin Ratio 2.2 (1-3); Calcium 9.9 mg/dL (8.6-10.3); Creatinine, Serum 0.77 mg/dL (0.51-0.95); Potassium 4.1 mmol/L (3.5-5.0); Total Bilirubin 0.3 mg/dL (0.2-1.0); Total Protein 6.3 g/dL (6.4-8.9); eGFR CKD-EPI 92.8 (>60)
[2023-02-15 18:30] LABS: CKMB ng/mL 2.9 ng/mL (0.6-6.3)
[2023-02-15 20:18] LABS: C Reactive Protein 4.74 mg/L (<8.01); Magnesium 1.9 mg/dL (1.9-2.7)
[2023-02-15 20:21] LABS: Urine Appearance Clear; Urine Bilirubin Negative (Negative); Urine Blood Negative (Negative); Urine Color Straw; Urine Glucose Negative (Negative); Urine Ketones Negative (Negative); Urine Nitrite Negative (Negative); Urine Protein Negative (Negative); Urine Specific Gravity 1.002 (1.002-1.030); Urine Urobilinogen Negative (Negative)
[2023-02-15 20:40] LABS: High Sensitivity Troponin 1 Hr < 3 pg/mL (<15)
[2023-02-15] MEDS ORDERED: LORazepam 2 mg VIAL 1 ml IV PUSH ONE (21:24)
[2023-02-15] MEDS ORDERED: Lorazepam PYXIS KEY PRN (21:24)
[2023-02-15] MEDS ORDERED: Gadoteridol (CONTRAST) 279.3 MG/ML 10 ML IV ONE (22:35)
[2023-02-15] MEDS ORDERED: Senna TAB 8.6 mg TAB PO PRN (23:07)
[2023-02-15] MEDS ORDERED: Magnesium Hydroxide LIQ 30 ML UDC PO PRN (23:07)
[2023-02-15] MEDS ORDERED: Enoxaparin 40 MG/0.4 ML SYR SUBCUT SCH (23:45)
[2023-02-16] MEDS: Nystatin SUSPENSION 100,000 UNITS/ML UDC PO SCH ×7 (03:13→22:56)
[2023-02-16] MEDS: Cholecalciferol (VIT D3) 1,000 unit TAB PO SCH (07:53)
[2023-02-16 08:42] LABS: Calcium 9.2 mg/dL (8.6-10.3); Creatinine, Serum 0.76 mg/dL (0.51-0.95); Potassium 4.2 mmol/L (3.5-5.0); eGFR CKD-EPI 94.2 (>60)
[2023-02-16] MEDS ORDERED: Nicotine GUM 2MG FRUIT FLAVOR PO PRN (10:53)
[2023-02-16] MEDS: Nicotine PATCH 21 MG/24 HR PATCH TRANSDERM SCH (14:27)
[2023-02-16 16:22] LABS: Vitamin D Total 25(OH) 19.8 ng/mL (20-50)
[2023-02-16 17:15] LABS: Body Fluid Source Cerebral Spinal
[2023-02-16 17:33] LABS: Body Fluid Appearance Clear; Body Fluid Color Colorless
[2023-02-16 17:34] LABS: CSF Tube # 4
[2023-02-16 17:46] LABS: CSF Glucose 75 mg/dL (40-70)
[2023-02-16 18:27] LABS: Body Fluid WBC 2 /mcL
[2023-02-16 20:51] LABS: Body Fluid Mono 10 %; Body Fluid Total Cells Counted 30
[2023-02-17] MEDS: Nystatin SUSPENSION 100,000 UNITS/ML UDC PO SCH ×2 (03:50→09:57)
[2023-02-17] MEDS: Cholecalciferol (VIT D3) 1,000 unit TAB PO SCH (09:54)
[2023-02-17] MEDS: Nicotine PATCH 21 MG/24 HR PATCH TRANSDERM SCH (09:55)
[2023-02-17 11:34] VITALS: BP 104/59
[2023-02-17] MEDS ORDERED: Carbamide Peroxide 6.5% OTIC 15 ML BTL LEFT EAR SCH (12:00)
[2023-02-19 15:27] LABS: CSF VDRL Negative (Negative)
[2023-02-19 19:21] LABS: Phospholipid Ab IgG < 9.4 GPL; Phospholipid Ab IgM, S < 9.4 MPL
[2023-02-20 01:28] LABS: HSV 1 PCR, CSF Negative (Negative); HSV 2 PCR, CSF Negative (Negative)
[2023-02-20 16:57] LABS: CSF Oligoclonal Bands 2 bands; Oligoclonal Proteins Interpret 1 bands (<2); Serum Oligoclonal Bands 1 bands
[2023-02-22 09:56] LABS: NMO/AQP4 IgG Negative (Negative)
== END 2023-02-17 13:36 | disposition home or self-care (01) ==
LOC: EDHOLD 16:40 → ED 16:40 → EDHOLD 02-16 08:13 → MEDTELE 02-16 10:27
PROVIDERS: ADMIT Internal Medicine; ATTEND Internal Medicine